=== PATIENT | male | born 1965 | race Caucasian/White ===

== ENCOUNTER 2019-09-21 19:19 | Emergency (ER) | payer SELFPAY ==
--- NOTE | 2019-09-21 19:24 | ED.HA ---
HPI - Headache General Chief Complaint: Headache Stated Complaint: MIGRAINE Time Seen by Provider: 09/21/19 19:20 Source: patient and family Mode of arrival: Ambulatory Limitations: no limitations History of Present Illness HPI Narrative: 54M nonsmoker with history of migraines presents with his with the chief complaint of a severe relatively sudden onset migraine type headache that started about 30 minutes prior to arrival to engaged in intercourse. He states it is very intense, perhaps an 8 or a 9/10 and global in its distribution. He states it feels like it is squeezing his entire head. He denies any recent injury nor fever or chills. He does state that he has had some nausea and vomiting. He denies any focal neurologic findings such as numbness, tingling or weakness. He denies any loss of control of bowel or bladder. He states that he did have an episode of a much milder headache on Friday but that he vomited for nearly 9 hours straight. He resolved and did well over the course of the weekend until his symptoms started again this evening as stated above. MD Complaint: headache and migraine Onset (ago): minute(s) Onset description: sudden Location: diffuse Severity: moderate Severity scale (1-10): 8 Quality: aching and throbbing Relieving factors: dark room Exacerbating factors: light and noise Context: occurred during intercourse Associated symptoms: nausea, vomiting, photophobia and sensitivity to sound Treatments prior to arrival: none Review of Systems Constitutional Constitutional: Denies chills, Denies fatigue, Denies fever(s), Denies frequent falls, Reports headache(s), Denies lethargy and Denies weakness Eyes Eyes: Denies change in vision, Denies eye discharge, Denies irritation and Denies loss of vision ENT Ears, Nose, Mouth, and Throat: Denies change in voice, Denies dizziness, Reports headache(s), Denies neck pain, Denies sore throat and Denies throat swelling Cardiovascular Cardiovascular: Denies chest pain, Denies irregular heart rhythm, Denies lightheadedness, Denies palpitations, Denies dyspnea, Denies dyspnea on exertion and Denies orthopnea Respiratory Respiratory: Denies cough, Denies dyspnea, Denies dyspnea on exertion and Denies wheezing Gastrointestinal Gastrointestinal: Denies abdominal pain, Denies change in bowel habits, Denies diarrhea, Reports nausea and Reports vomiting Musculoskeletal Musculoskeletal: Denies neck pain and Denies numbness Integumentary/Breasts Skin/Breast: Denies pruritus, Denies erythema, Denies rash and Denies wounds Neurologic Neurologic: Denies behavioral changes, Denies confusion, Denies dizziness, Denies frequent falls, Reports headache(s), Denies loss of vision, Denies numbness and Denies weakness Psychiatric Psychiatric: Denies anxiety, Denies behavioral changes, Denies confusion, Denies depression, Denies homicidal ideation and Denies suicidal ideation Endocrine Endocrine: Denies fatigue, Denies flushing and Denies palpitations Hematologic/Lymphatic Hematologic/Lymphatic: Denies easy bruising Allergic/Immunologic Allergic/Immunologic: Denies urticaria, Denies throat swelling and Denies wheezing Patient History Social History Smoking Status: Former smoker Smoking Status: Former smoker alcohol intake frequency: 0-2 drinks per day Alcohol type: beer Substance Use Type: marijuana Exam Initial Vital Signs Initial Vital Signs: Vital Signs Temperature 99.0 F 09/21/19 19:28 Pulse Rate 72 09/21/19 19:28 Respiratory Rate 20 09/21/19 19:28 Blood Pressure 162/92 H 09/21/19 19:28 Pulse Oximetry 99 09/21/19 19:28 Const General: cooperative, well developed and in distress Nutritional Appearance: well nourished [facility] Head: normocephalic and atraumatic Ears: external ears normal and TM's normal bilaterally Nose: external nose normal and No nasal discharge Face and sinus: sinuses nontender, face symmetric, no sinus tenderness and No dry mucous membranes Mouth: oral mucosae normal and moist mucous membranes Teeth and gingiva: dentition normal Throat: tonsils normal and uvula midline Eyes General: appearance normal, both eyes and all related structures Eyelids: eyelids normal Conjunctivae: conjunctivae normal Sclera: sclerae normal Pupils: PERRL EOM: EOM intact bilaterally Neck Neck: normal visual inspection, trachea midline, No lymphadenopathy, No midline deformity and No JVD Lymphatic: No lymphedema Chest Chest: normal inspection of the chest Resp Effort & Inspection: normal respiratory effort, able to speak in complete sentences, no respiratory distress and no use of accessory muscles Auscultation: clear to auscultation bilaterally, no rales, no rhonchi and no wheezes Cardio Rate: regular rate Rhythm: regular rhythm Heart Sounds: no click, no gallops, no murmurs and no rubs Pulses: normal peripheral pulses GI Inspection: non-distended Palpation: soft, no hepatosplenomegaly, No guarding, No pulsatile mass and No tender Auscultation: normal bowel sounds Back/Spine/Pelvis Back: No CVA tenderness Cervical Spine: cervical ROM normal and No pain with cervical ROM Thoracic/Lumbar Spine: thoracic and lumbar spine normal to inspection Skin General: no rashes or lesions noted, No jaundice and No petechiae Neuro General: patient alert, patient oriented x3, gait normal and no focal motor deficits Speech: speech normal Extrem General: full ROM, no clubbing, cyanosis or edema, no pedal edema and no calf tenderness Psych Appearance: well kempt Mental Status: mental status grossly normal Attitude: cooperative Thought Content: normal and suicidality Judgment: judgment good Course Orders Ordered: ED Orders 09/21/19 19:33 CT head/brain wo con Stat Discontinued Medications Dexamethasone (Decadron) 10 mg IV NOW ONE Stop: 09/21/19 19:33 Last Admin: 09/21/19 19:47 Dose: 10 mg Documented by: MMCDEVONL Diphenhydramine HCl (Benadryl) 25 mg IV NOW ONE Stop: 09/21/19 19:33 Last Admin: 09/21/19 19:48 Dose: 25 mg Documented by: MMCFARL Sodium Chloride (Normal Saline 0.9%) 1,000 mls @ 1,000 mls/hr IV BOLUS ONE Stop: 09/21/19 20:31 Last Admin: 09/21/19 19:40 Dose: 1,000 mls/hr Documented by: MMCFARL Ketorolac Tromethamine (Toradol) 15 mg IV NOW ONE Stop: 09/21/19 19:51 Last Admin: 09/21/19 19:58 Dose: 15 mg Documented by: MMCFARL Metoclopramide HCl (Reglan) 10 mg IV NOW ONE Stop: 09/21/19 19:33 Last Admin: 09/21/19 19:48 Dose: 10 mg Documented by: MMCFARL Vital Signs Vital signs: Vital Signs - 8 hr 09/21/19 19:28 Temperature 99.0 F Pulse Rate 72 Respiratory Rate 20 Blood Pressure 162/92 H Pulse Oximetry 99 MDM - Headache Imaging Data CT scan - head: Attestation: I personally reviewed and interpreted this imaging study as follows: My Impression: No bleed Radiologist's Impression: [address] [address] [address] Scan Report Signed Patient: Chau Serrano [facility]#: [id number] : 1965Acct:[id number] Age/Sex: 54 / MDate of Service: 09/21/19 Loc: ED Accession Number: [id number] Procedure: CT head/brain wo con Ordering Provider: Edwin Adrian D.O. PROCEDURE: CT HEAD/BRAIN WO CON INDICATIONS: severe sudden headache 30 minutes ago, worst he has had TECHNIQUE: Noncontrast 4.5 mm thick angled axial sections acquired from the foramen magnum to the vertex, with coronal and sagittal reformats. For radiation dose reduction, the following was used: automated exposure control, adjustment of mA and/or kV according to patient size. COMPARISON: None. FINDINGS: Image quality: Excellent. CSF spaces: Basal cisterns are patent. No extra-axial fluid collections. Ventricles are normal in size and shape. Brain: No midline shift. No intracranial masses or hemorrhage. Nichole-white matter interface is normal. Skull and face: Calvarium and visualized facial bones are intact, without suspicious lesions. Sinuses: Visualized sinuses and mastoids are clear. IMPRESSION: CT head without acute intracranial abnormalities. No acute intracranial hemorrhage. No mass or mass effect. Dictated by: Ibrahima Parish M.D. on 09/21/2019 at 19:55 Approved by: Ibrahima Parish M.D. on 09/21/2019 at 19:55 [facility] Narrative Medical decision making narrative: Patient had near complete resolution of symptoms after above-stated therapies Discharge Plan Departure Patient Disposition: Home Clinical Impression: Headache Qualifiers: Headache type: unspecified Headache chronicity pattern: acute headache Intractability: not intractable Qualified Code(s): R51 - Headache Instructions: DI for Headache Activity Restrictions/Additional Instructions: *You have been diagnosed with [acute headache, likely migraine type] *What to do: *Take medications as directed *Please call the [facility] Resource line tomorrow morning. Let them know you were seen in the Emergency Department and that we ask that you be seen in follow up and that you need help finding a doctor. *Return to ER if you should have any new, worsening or concerning symptoms Referrals: [facility] [Outside]
[2019-09-21 19:28] VITALS: BP 162/92; PULSE 72; RESP 20; TEMP 37.2; O2SAT 99
--- NOTE | 2019-09-21 19:33 | DI.CT.S_ITS ---
PROCEDURE: CT HEAD/BRAIN WO CON INDICATIONS: severe sudden headache 30 minutes ago, worst he has had TECHNIQUE: Noncontrast 4.5 mm thick angled axial sections acquired from the foramen magnum to the vertex, with coronal and sagittal reformats. For radiation dose reduction, the following was used: automated exposure control, adjustment of mA and/or kV according to patient size. COMPARISON: None. FINDINGS: Image quality: Excellent. CSF spaces: Basal cisterns are patent. No extra-axial fluid collections. Ventricles are normal in size and shape. Brain: No midline shift. No intracranial masses or hemorrhage. Nichole-white matter interface is normal. Skull and face: Calvarium and visualized facial bones are intact, without suspicious lesions. Sinuses: Visualized sinuses and mastoids are clear. IMPRESSION: CT head without acute intracranial abnormalities. No acute intracranial hemorrhage. No mass or mass effect. Dictated by: Ibrahima Parish M.D. on 09/21/2019 at 19:55 Approved by: Ibrahima Parish M.D. on 09/21/2019 at 19:55
[2019-09-21] MEDS: SODIUM CHLORIDE 0.9% 1,000 ML 1000 ML IV (19:40)
[2019-09-21] MEDS: DEXAMETHASONE 10 MG/ML VIAL IV (19:47)
[2019-09-21] MEDS: diphenhydrAMINE 50 MG/ML VIAL 25 MG IV (19:48)
[2019-09-21] MEDS: METOCLOPRAMIDE 10 MG/2 ML INJ IV (19:48)
[2019-09-21] MEDS: KETOROLAC 60 MG/2 ML VIAL 15 MG IV (19:58)
[2019-09-21 20:41] VITALS: BP 149/91; PULSE 66; RESP 15; O2SAT 98
== END 2019-09-21 20:40 | disposition home or self-care (01) ==
PROVIDERS: Emergency Provider Emergency Medicine
DX: R51 Headache (principal)
CPT/HCPCS: 36415; 70450; 96361; 96374; 96375; 99284; J1100; J1200; J1885; J2765

== ENCOUNTER 2019-10-13 15:12 | Emergency (ER) | payer OTHER, SELFPAY ==
[2019-10-13 15:18] VITALS: BP 118/75; PULSE 77; RESP 18; TEMP 37; O2SAT 98; BMI 25.1
--- NOTE | 2019-10-13 15:31 | DI.RAD.S_ITS ---
PROCEDURE: XR KNEE RT 3V INDICATIONS: R knee injury TECHNIQUE: 3 views of the knee were acquired. COMPARISON: None. FINDINGS: Bones: No fractures or dislocations. No suspicious bony lesions. Chronic heterotopic ossification seen at the tibial tuberosity. Posterior calcific focus, possibly bipartite fabella versus small loose bodies. This could be either assessed with cross-sectional imaging as clinically necessary. Scattered degenerative subchondral sclerosis and spurring. Soft tissues: No joint effusion. No suspicious soft tissue calcifications. IMPRESSION: Chronic osseous sequela at the tibial tuberosity suggestive of long-standing [place]-Schlatter disease. Mild diffuse degenerative changes as above Dictated by: Neal Merchant M.D. on 10/13/2019 at 15:49 Approved by: Neal Merchant M.D. on 10/13/2019 at 15:51
[2019-10-13 16:27] VITALS: BP 120/72; PULSE 74; RESP 16; O2SAT 97
--- NOTE | 2019-10-13 16:50 | ED.LOWEXIN ---
HPI - Extremity Injury (Lower) <LUCILLE Abdi - Last Filed: 10/13/19 19:05> General Chief Complaint: Extremity Injury, Lower Stated Complaint: RIGHT KNEE INJURY Time Seen by Provider: 10/13/19 15:18 Source: patient Mode of arrival: Ambulatory Limitations: no limitations History of Present Illness HPI Narrative: 54yo male presents emergency department for right knee pain and swelling over the past week. He states he was at work approximately a week ago, lifting heavy objects, moving and twisting. He denies any specific or sudden injury, but noted increased swelling and significant pain that evening after work. He has been using a brace in taking Advil which has helped. However, he hears a popping sensation when he walks and reports increased pain with weight-bearing. Patient states pain is a dull aching 8/10. He denies any previous injury to the knee or past surgeries. Patient denies any other injuries. Denies history of gout, denies fevers, chills, nausea, vomiting, diarrhea, foot pain, hip pain, direct trauma, or any other concerns. 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 Related Data Allergies Allergy/AdvReac Type Severity Reaction Status Date / Time Sulfa (Sulfonamide Allergy Verified 10/13/19 15:18 Antibiotics) Review of Systems <LUCILLE Abdi - Last Filed: 10/13/19 19:05> Review of Systems Narrative: REVIEW OF SYSTEMS: GENERAL: Denies fever or chills. HENT: No head trauma. CARDIOVASCULAR: No chest pain or syncope. RESPIRATORY: No shortness of breath. GASTROINTESTINAL: No nausea vomiting. GENITOURINARY: No flank pain or dysuria. MUSCULOSKELETAL: Complains of right knee pain and swelling, see HPI. INTEGUMENTARY: No rashes or lesions. NEURO: No numbness, tingling. PSYCH: No behavior or mood changes. Patient History <LUCILLE Abdi - Last Filed: 10/13/19 19:05> Medical History No significant medical problems (Acute) Social History Smoking Status: Former smoker Smoking Status: Former smoker alcohol intake frequency: 0-2 drinks per day Alcohol type: beer and wine Substance Use Type: marijuana Exam <LUCILLE Abdi - Last Filed: 10/13/19 19:05> Initial Vital Signs Initial Vital Signs: Vital Signs Temperature 98.6 F 10/13/19 15:18 Pulse Rate 77 10/13/19 15:18 Respiratory Rate 18 10/13/19 15:18 Blood Pressure 118/75 10/13/19 15:18 Pulse Oximetry 98 10/13/19 15:18 PHYSICAL EXAMINATION: GENERAL: Well groomed, alert, and cooperative. Answers questions promptly and appropriately. Vital signs noted. HENT: Normocephalic, atraumatic. EYES: Symmetrical, sclera white, no periorbital swelling. CARDIOVASCULAR: S1 and S2 sounds normal. Regular rate and rhythm, no murmurs, clicks, or bruits. RESPIRATORY: Normal respiratory rate, trachea midline, airway patent. No stridor, nasal flaring or accessory muscle use. Lungs are clear in all bae. MUSCULOSKELETAL: Moderate swelling noted to right knee, no erythema or increased temp. Significant pain with palpation of the joint line and superior aspect of the patella. No pain with palpation to tibial tuberosity. Decreased flexion due to swelling and pain, patient able to flex approximately 90?. Full extension. Pain with weight-bearing. No increased temp, erythema, or ecchymosis. Stable knee with drawer test. Minor pain with Steven's test. Equal tone and mass bilaterally. EXTREMITIES: CMS intact. Pedal pulses 2+ and equal bilaterally. SKIN: Warm, dry, soft, appropriate color for ethnicity. No lesions, rashes, or wounds. NEURO: Alert and Oriented X 3. No sensory deficits. PSYCH: Appropriate affect and mood. <Liseth Aguilar DO - Last Filed: 10/14/19 07:05> Initial Vital Signs Initial Vital Signs: Vital Signs Temperature 98.6 F 10/13/19 15:18 Pulse Rate 77 10/13/19 15:18 Respiratory Rate 18 10/13/19 15:18 Blood Pressure 118/75 10/13/19 15:18 Pulse Oximetry 98 10/13/19 15:18 Course <LUCILLE Abdi - Last Filed: 10/13/19 19:05> Course Course Narrative: Patient offered Toradol, knee immobilizer, and crutches---declined. I discussed findings of x-ray with patient. Orders Ordered: ED Orders 10/13/19 15:31 XR knee RT 3V Stat Vital Signs Vital signs: Vital Signs - 8 hr 10/13/19 15:18 10/13/19 16:27 Temperature 98.6 F Pulse Rate 77 74 Respiratory Rate 18 16 Blood Pressure 118/75 120/72 Pulse Oximetry 98 97 <Liseth Aguilar DO - Last Filed: 10/14/19 07:05> Orders Ordered: ED Orders 10/13/19 15:31 XR knee RT 3V Stat Vital Signs Vital signs: Vital Signs - 8 hr 10/13/19 15:18 10/13/19 16:27 Temperature 98.6 F Pulse Rate 77 74 Respiratory Rate 18 16 Blood Pressure 118/75 120/72 Pulse Oximetry 98 97 MDM - Extremity Injury (Lower) <LUCILLE Abdi - Last Filed: 10/13/19 19:05> Medical Records Attestation: I reviewed the patient's medical records. Lab Data Attestation: I reviewed the patient's lab results. Imaging Data Extremity x-ray #1: Radiologist's Impression: [address] [address] XRay Report Signed Patient: Chau Serrano [facility]#: [id number] : 1965Acct:[id number] Age/Sex: 54 / MDate of Service: 10/13/19 Loc: ED Accession Number: [id number] Procedure: XR knee RT 3V Ordering Provider: Aneta Serrano PROCEDURE: XR KNEE RT 3V INDICATIONS: R knee injury TECHNIQUE: 3 views of the knee were acquired. COMPARISON: None. FINDINGS: Bones: No fractures or dislocations. No suspicious bony lesions. Chronic heterotopic ossification seen at the tibial tuberosity. Posterior calcific focus, possibly bipartite fabella versus small loose bodies. This could be either assessed with cross-sectional imaging as clinically necessary. Scattered degenerative subchondral sclerosis and spurring. Soft tissues: No joint effusion. No suspicious soft tissue calcifications. IMPRESSION: Chronic osseous sequela at the tibial tuberosity suggestive of long-standing [place]-Schlatter disease. Mild diffuse degenerative changes as above Dictated by: Neal Merchant M.D. on 10/13/2019 at 15:49 Approved by: Neal Merchant M.D. on 10/13/2019 at 15:51 [facility] Narrative Medical decision making narrative: 54-year-old male presents emergency department for right knee pain without specific injury. Patient was working at the time and was lifting heavy objects, bending, and twisting that evening when he develops significant knee pain and swelling. Differential includes arthritis versus meniscus injury versus ligamentous injury. X-ray shows [place]-Schlatter which may contribute to chronic knee pain but is less likely the cause of acute knee pain due to lack of tenderness to the tibial tuberosity. X-ray without notable fractures. Patient was offered Toradol but declined. He was encouraged to wear a knee brace with a hinged to help with stability. Patient was referred to an orthopedic for further evaluation and follow-up. Return precautions given for new or worsening symptoms. Patient agreed to plan of care verbalized understanding. Discharge Plan Departure Patient Disposition: Home Clinical Impression: Internal derangement of knee Qualifiers: Laterality: right Qualified Code(s): M23.91 - Unspecified internal derangement of right knee Discharge Date/Time: 10/13/19 16:27 Instructions: DI for Meniscal Tear, DI for Garth-Schlatter Disease Activity Restrictions/Additional Instructions: Thank you for entrusting me with your care today. As discussed, your x-ray shows chronic [place]-Schlatter disease and some degenerative changes. However, and concerned that your injury today involves your meniscus. This cannot be visualized on x-ray. Please follow-up with orthopedic listed below, call their office today or tomorrow to schedule an appointment within the next week for further testing and evaluation. Continue wearing your brace, I recommend a hinged knee brace for further stability. Elevate the leg as much as possible, use Advil as needed for pain and swelling. Return emergency department for any new or worsening symptoms such as severe pain, high fevers, uncontrollable vomiting, chest pain, shortness of breath, or any other concerns. Referrals: Figueroa Andrade MD [Physician] - <Liseth Aguilar DO - Last Filed: 10/14/19 07:05> Cosign ED Attending Cosederature Attestation: I was immediately available in the department for consultation. Documentation has been reviewed. I agree with assessment and plan.
== END 2019-10-13 16:27 | disposition home or self-care (01) ==
PROVIDERS: Emergency Provider Nurse Practitioner
DX: M23.91 Unspecified internal derangement of right knee (principal); X50.0XXA Overexertion from strenuous movement or load, initial encounter; Y99.0 Civilian activity done for income or pay
CPT/HCPCS: 73562; 99283